=== PATIENT | male | born 1995 | race Caucasian/White ===

== ENCOUNTER 2018-08-14 17:52 | Inpatient (IN) | payer OTHER ==
[2018-08-14] MEDS ORDERED: KETAMINE 100 MG/ML (5ML VIAL) ONE (18:00)
[2018-08-14] MEDS ORDERED: Midazolam HCl 2 mg/2 ml Vial ONE (18:18)
--- NOTE | 2018-08-14 18:26 | RAD ---
RIGHT FOREARM TWO VIEWS: 08/14/18 HISTORY: Right forearm injury from a fall from trauma. FINDINGS/IMPRESSION: No fracture, dislocation, or other significant acute osseous abnormality. POS: [facility]
--- NOTE | 2018-08-14 18:28 | RAD ---
RIGHT HAND THREE VIEWS: 08/14/18 HISTORY: Right hand injury from a fall. FINDINGS: Soft tissue swelling particularly over the dorsal aspect of the hand. No fracture, dislocation, or ot her significant acute osseous abnormality. IMPRESSION: Soft tissue swelling, particularly dorsally and medially. No acute fracture or dislocation. POS: [facility]
[2018-08-14 18:30] LABS: #Basophils 0.1 thou/uL (0.0-0.2); #Eosinphils 0.1 thou/uL (0.0-0.7); #Lymphocytes 1.2 thou/uL (1.20-3.40); #Monocytes 0.6 thou/uL (0.11-0.59); #Neutrophils 11.7 thou/uL (1.40-6.50); %Basophils 0.4 % (0.0-1.0); %Eosinophils 0.4 % (0.0-10.0); %Lymphocytes 8.5 % (21.0-51.0); %Monocytes 4.7 % (0.0-10.0); %Neutrophils 86.1 % (42.0-75.0); Hemoglobin 11.9 g/dL (14.0-18.0); Mean Corpuscular HGB CONC 34.8 g/dL (32.0-36.0); Mean Corpuscular Hemoglobin 30.7 pg (27.0-31.0); Mean Corpuscular Volume 88.1 fL (78.0-98.0); Mean Platelet Volume 6.7 fL (7.4-10.4); Platelet Count 324 thou/uL (130-400); RBC Distribution Width 11.6 % (11.5-14.5); Red Blood Cell (RBC) Count 3.89 mill/uL (4.70-6.10); White Blood Cell (WBC) Count 13.6 thou/uL (4.8-10.8)
[2018-08-14 18:49] LABS: ALT (SGPT) 17 U/L (8-55); AST (SGOT) 17 U/L (5-34); Acetaminophen Less than 6.0 mcg/mL (10.0-30.0); Alcohol Less than 10 mg/dL (Less than 10); Alkaline Phosphatase 62 U/L (40-150); Anion Gap 16 mmol/L (10-20); BUN (Urea Nitrogen) 11 mg/dL (8.9-20.6); Bilirubin, Total 0.4 mg/dL (0.2-1.2); Calc. Creatinine Clearance 0 mL/min (70-130); Calcium 8.4 mg/dL (7.8-10.44); Carbon Dioxide 19 mmol/L (22-29); Chloride 108 mmol/L (98-107); Estimated GFR-MDRD Greater than 90; Globulin 2.2 g/dL (2.4-3.5); Glucose 154 mg/dL (70-105); Potassium 3.7 mmol/L (3.5-5.1); Protein, Total 6.2 g/dL (6.0-8.3); Salicylate Less than 8.0 mg/dL (15.0-30.0); Sodium 139 mmol/L (136-145)
--- NOTE | 2018-08-14 18:55 | CT ---
BRAIN CT WITHOUT IV CONTRAST: 08/14/18 HISTORY: Altered mental status. Ingestion of drugs. Injury from a fall. FINDINGS: No focal mass or midline shift. No intra or extra-axial hemorrhage. Sinuses and mastoids are clear of acute process. IMPRESSION: No significant acute intracranial process. No mass or bleed or other acute process. POS: [facility]
--- NOTE | 2018-08-14 18:58 | RAD ---
CHEST ONE VIEW: 08/14/18 HISTORY: Chest injury following a fall. Intoxication. There is rotation to the left. Monitor leads overlie the chest. No confluent pneumonia, overt edema o r pleural effusion. IMPRESSION: No acute intrathoracic disease. POS: [facility]
[2018-08-14] MEDS ORDERED: Haloperidol Lactate 5 MG/ML VIAL ONE (19:04)
[2018-08-14] MEDS ORDERED: diphenhydrAMINE 50 MG/ML VIAL ONE (19:04)
[2018-08-14] MEDS ORDERED: Lorazepam 2 MG/ML VIAL ONE (19:05)
[2018-08-14 20:00] LABS: Bilirubin Negative (Negative); Blood, Urine Negative (Negative); Clarity CLOUDY (Clear); Glucose, Urine (Dipstick) Negative (Negative); Leukocyte Negative (Negative); Nitrite Negative (Negative); Protein, Urine (Dipstick) Trace mg/dL (Neg-Trace); Specific Gravity, Urine 1.013 (1.002-1.036); Urobilinogen 0.2 mg/dL (0.2-1.0)
[2018-08-14 20:09] LABS: Amphetamine Detected (NotDetected); Barbiturates Screen Not Detected (NotDetected); Benzodiazepine Screen Not Detected (NotDetected); Cocaine Metabolite Screen Not Detected (NotDetected); Medtox Control Line Valid? VALID (VALID); Medtox Reader # READER 1; Methadone Not Detected (NotDetected); Methamphetamine Not Detected (NotDetected); Opiate Screen Not Detected (NotDetected); Oxycodone Screen Not Detected (NotDetected); Phencyclidine (PCP) Not Detected (NotDetected); THC/Cannabinoid Screen Detected (NotDetected); Tricyclic Screen Not Detected (NotDetected)
[2018-08-14] MEDS ORDERED: Lorazepam 2 MG/ML VIAL SLOW IVP PRN (21:34)
[2018-08-14 21:43] VITALS: BMI 22.4
[2018-08-14] MEDS ORDERED: Sodium Chloride 0.45% 1,000 ML IV SCH (21:45)
[2018-08-15] MEDS ORDERED: Acetaminophen 650 MG Suppository PR PRN ×2 (00:16→00:20)
[2018-08-15] MEDS ORDERED: Acetaminophen 650 MG/20.3 ML UDCUP PO PRN ×2 (00:16→00:20)
[2018-08-15] MEDS ORDERED: Ondansetron PF 4 MG/2 ML Vial IVP PRN (00:20)
[2018-08-15] MEDS ORDERED: Ondansetron ODT 4 MG TAB PO PRN (00:20)
[2018-08-15] MEDS: Sodium Chloride 0.9% 1,000 ML IV SCH ×2 (00:29→09:00)
--- NOTE | 2018-08-15 08:44 | CON ---
DATE OF CONSULTATION: HISTORY OF PRESENT ILLNESS: This is a 23-year-old gentleman, who is in the ICU because he took 5 tablets of LSD. Apparently, also took some meth, possibly cocaine. He was found jumping in the street in front of cars, punching around. He was given Versed and brought to the ER. He is now in the ICU. He is observed because of possibly respiratory failure. This morning, he is awake, alert, and responsive. Denies any pain or discomfort. PAST MEDICAL HISTORY: Pertinent for previous depression, previous suicide attempt. Apparently, his past medical history is unremarkable for diabetes and hypertension. PAST SURGICAL HISTORY: Apparently, none. We are trying to get additional information once father arrives. His toxicology screen showed cannabinoids, amphetamines. Alcohol was less. CHRONIC MEDICATIONS: Apparently, none. ALLERGIES: NONE. SOCIAL HISTORY: He goes to school, [place]. PHYSICAL EXAMINATION: GENERAL: Awake, alert, and responsive. VITAL SIGNS: Blood pressure , pulse 80, respiratory rate 18, saturating 96% on room air. CHEST: No wheezing or crackles. CARDIAC: Normal S1 and S2. No gallops . LABORATORY DATA: White count 11446, H and H 11 and 34, platelet count is normal. Lytes are normal. He had some x-rays done of his hand and forearm because there was extensive bruising and swelling, probably from self injury. X-ray of his hand shows swelling of right hand from the fall, but no fractures were seen. X-ray of the forearm shows no broken bones. CT of the head showed no acute process, x-ray was clear. IMPRESSION: 1. Status post metabolic encephalopathy secondary to substance abuse including LSD, methamphetamine. 2. Swelling of his right arm from injury. PLAN: The patient needs ongoing counseling, [facility]. He can be transferred out of the ICU later time. In the meantime, continue supportive care. Consultation note, 70 minutes, 50% direct patient care. Job ID: [id number]
--- NOTE | 2018-08-15 08:51 | PDOC.PN ---
- Subjective Encounter Start Date: 08/15/18 Encounter Start Time: 08:49 Subjective: Seen and examined no new complaint - Objective Resuscitation Status - Order Detail: 08/15/18 00:20 Resuscitation Status Routine Resuscitation Status: FULL: Full Resuscitation Vital Signs & Weight: Vital Signs (12 hours) Temp Pulse Ox 08/15/18 08:00 98.6 F 100 08/15/18 03:00 98.5 F 08/14/18 23:00 98.0 F 08/14/18 21:46 98 08/14/18 21:15 98.3 F Weight Weight 151 lb 4.852 oz Most Recent Monitor Data Heart Rate from ECG 102 NIBP 132/78 NIBP BP-Mean 96 Respiration from ECG 15 SpO2 100 I&O: 08/14/18 08/15/18 08/16/18 06:59 06:59 06:59 Intake Total 771 240 Output Total 1225 325 Balance -454 -85 Result Diagrams: 08/14/18 18:20 08/14/18 18:20 Phys Exam - Physical Examination Constitutional: NAD HEENT: PERRLA, moist MMs, sclera anicteric, TM's clear Neck: no nodes, no JVD, supple, full ROM Respiratory: no wheezing, no rales, no rhonchi, clear to auscultation bilateral Cardiovascular: RRR, no significant murmur, no rub Gastrointestinal: soft, non-tender, no distention, positive bowel sounds Musculoskeletal: no edema, pulses present Neurological: non-focal, normal sensation, moves all 4 limbs Lymphatic: no nodes Psychiatric: normal affect, A&O x 3 Dx/Plan (1) Drug intoxication with perceptual disturbance Code(s): F19.922 - OT PSYCHOACTV SUB USE, UNSP W INTOX W PERCEPTL DISTURB Status: Acute (2) Acute drug intoxication with complication Code(s): F19.929 - OTH PSYCHOACTIVE SUBSTANCE USE, UNSP WITH INTOXICATION, UNSP Status: Acute (3) Depression Code(s): F32.9 - MAJOR DEPRESSIVE DISORDER, SINGLE EPISODE, UNSPECIFIED Status : Acute - Plan Transfer out of ICU -: [facility] eval -: Dispo planning * .
[2018-08-15 13:02] VITALS: TEMP 98.4
--- NOTE | 2018-08-16 02:08 | HP ---
CHIEF COMPLAINT: Drug overdose. HISTORY OF PRESENT ILLNESS: This is a 23-year-old female with no past medical history, presenting with drug overdose. Per ED records, the patient took 5 tabs of LSD and unknown amount of meth, and patient must have also done cocaine. Per records, the patient was out there on the street and the patient was jumping in front of cars, wanting to kill herself. It seem like the patient has had this history of suicidal ideation in the past. Also it noted that the patient was also punching the ground and the patient was very aggressive. The patient was then brought to our facility to be further evaluated and treated. On arrival, the patient's blood pressure was noted to be in the 150s systolic. The patient was tachycardic at 150. The patient was given 170 of ketamine to sedate her. Upon further investigation, it is noted that the patient is a male, who identifies as a female. She goes by the name Fatou. REVIEW OF SYSTEMS: Unable to be obtained due to patient's intoxicated state and altered mental status at this time. PAST MEDICAL HISTORY: No past medical history per patient's father. PAST SURGICAL HISTORY: No surgical history noted. PSYCHIATRIC HISTORY: The patient has history of depression, suicidal ideation and suicidal attempts in the past. SOCIAL HISTORY: The patient currently uses drugs, LSD. It is not known if the patient drinks or patient smokes. ALLERGIES: NO KNOWN DRUG ALLERGIES. CURRENT MEDICATIONS: No current medications. PHYSICAL EXAMINATION: VITAL SIGNS: The patient's blood pressure is 151/103, pulse of 137, respiratory rate of 20, O2 saturation of 96. GENERAL: The patient is lying in bed in a full preventive restraint currently sedated and calm. The patient is able to answer questions, however, the patient is somnolent. HEENT: Normocephalic, atraumatic. Pupils are equally round and reactive to light. Extraocular movements are intact. No scleral icterus. No conjunctival pallor. The patient's pupils are dilated. There are no deficits noted. Mucous membranes are moist. NECK: Trachea is midline. Full range of motion. No JVD. LUNGS: Clear to auscultation bilaterally. No wheezing, no rales, no rhonchi appreciated. CARDIAC: Positive S1 and S2, tachycardic. ABDOMEN: Soft, nontender, and nondistended. Positive bowel sounds in all quadrants. EXTREMITIES: The patient has 5/5 upper extremity strength, good pulses bilaterally. There are contusions to the right hand and also there are signs of previous scars from patient cutting herself. Lower extremity, the patient has 5/5 lower extremity strength with good pulses bilaterally. NEUROLOGIC: The patient initially was combative, however now, the patient is sedated and the patient is calm. There are no focal neurologic deficits noted. SKIN: The patient does have old cardiac martínez to the anterior aspect of the left upper extremities and left lower extremities. DIAGNOSTIC DATA: EKG, 12-lead EKG shows sinus tachycardia. LABORATORY DATA: WBC is 13.6, hemoglobin is 11.9, hematocrit is 34.3, and platelet count is 324. Chemistry: Sodium is 139, potassium is 3.7, chloride is 108, carbon dioxide of 19, glucose 154. Toxicology showed cannabis and amphetamines in the urine. ASSESSMENT AND PLAN: This is a 23-year-old being admitted for, 1. Drug overdose. At this point, the patient is being treated with IV fluids and deeply sedated to prevent her from aggressive behavior. We will monitor the patient in the ICU. We will do neuro checks and seizure precautions. 2. Suicidal ideation. At this point, we have contacted [facility] for psych evaluation. We will monitor the patient closely. 3. Deep venous thrombosis and gastrointestinal prophylaxis. Job ID: [id number]
== END 2018-08-15 14:35 | disposition home or self-care (01) | DRG 917 ==
LOC: ERS 17:52 → CCU 20:33
PROVIDERS: ADMIT Internal Medicine; ATTEND Internal Medicine
DX: T40.2X2A Poisoning by other opioids, intentional self-harm, initial encounter (principal); G92 Toxic encephalopathy; T40.5X2A Poisoning by cocaine, intentional self-harm, initial encounter; M79.89 Other specified soft tissue disorders
CPT/HCPCS: 36415; 70450; 71045; 80053; 80306; 80307; 81003; 82550; 84443; 84484; 85025; 93005; J1200; J1630; J2060; J2250